=== PATIENT | male | born 1995 | race Caucasian/White ===

== ENCOUNTER 2017-04-07 17:25 | Emergency (ER) | payer SELFPAY ==
[~2017-04-07] VITALS: Ht 175.3 cm; Wt 73.0 kg
[2017-04-07 17:29] VITALS: Ht 175.3 cm; Wt 73.0 kg
[2017-04-07] MEDS ORDERED: ONDANSETRON (ODT) 4 MG TAB ODT STA (19:06)
[2017-04-07] MEDS ORDERED: RANI150T9 PO (19:16)
[2017-04-07] MEDS ORDERED: OMEP20CA16 PO (19:16)
[2017-04-07] MEDS ORDERED: LIDOCAINE/MYLANTA 40 ML BTL PO ONE (19:30)
[2017-04-07] MEDS ORDERED: PANTOPRAZOLE (EC) 40 MG TAB PO ONE (19:30)
--- NOTE | 2017-04-07 20:30 | ERD ---
ER Documentation Chief Complaint Date/Time DATE: 04/07/17 TIME: 20:27 Chief Complaint ABD PAIN WITH NAUSEA/VOMITING X 1 WEEK HPI This patient is a 22-year-old male with past medical history of gastric ulcers presenting to the emergency department for midepigastric pain ongoing intermittently for the past 10 days. Additionally he reports bloating after eating large meals. Symptoms are worse after eating. He reports pain 5 out of 10 on the pain scale which is intermittent. He is taken no medication for relief of symptoms. He states he feels acid in his esophagus after eating. He also reports nausea. He denies fevers, chills, chest pain, hematemesis, lower abdominal pain, urinary symptoms, dizziness, shortness of breath, or other symptoms. ROS All systems reviewed and are negative except as per history of present illness. Medications Home Meds Active Scripts Ranitidine Hcl* (Zantac*) 150 Mg Tablet, 150 MG PO BID Y for EPIGASTRIC PAIN, # 30 TAB Prov:JERRI BOSE PA-C 04/07/17 Omeprazole* (Omeprazole*) 20 Mg Capsule.dr, 20 MG PO DAILY, #14 Prov:JERRI BOSE PA-C 04/07/17 PMhx/Soc Medical and Surgical Hx: pt denies Medical Hx History of Surgery: Yes (hernia repair 2016) Anesthesia Reaction: No Hx Neurological Disorder: No Hx Respiratory Disorders: No Hx Cardiac Disorders: No Hx Psychiatric Problems: No Hx Miscellaneous Medical Probl: No Hx Alcohol Use: No Hx Substance Use: No Hx Tobacco Use: No Smoking Status: Never smoker Physical Exam Vitals Vital Signs Date Time Temp Pulse Resp B/P Pulse Ox O2 Delivery O2 Flow Rate FiO2 04/07/17 17:29 98.9 73 16 137/84 98 Physical Exam Const: Nontoxic, well-appearing male in no acute distress. Head: Atraumatic Eyes: Normal Conjunctiva ENT: Normal External Ears, Nose and Mouth. Neck: Full range of motion..~ No meningismus. Resp: Clear to auscultation bilaterally Cardio: Regular rate and rhythm, no murmurs Abd: Soft, mild subjective midepigastric tenderness to palpation but no rebound or guarding tenderness, non distended. Normal bowel sounds. Negative Kelley sign. No McBurney's point tenderness Skin: No petechiae or rashes Back: No midline or flank tenderness Ext: No cyanosis, or edema Neur: Awake and alert Psych: Normal Mood and Affect Results 24 hrs Current Medications Medications (Trade) Dose Ordered Sig/Timi Route PRN Reason Start Time Stop Time Status Last Admin Dose Admin Miscellaneous Medication (Gi Cocktail (2)) 40 ml ONCE ONCE PO 04/07/17 19:30 04/07/17 19:31 DC 04/07/17 19:14 Ondansetron HCl (Zofran Odt) 4 mg ONCE STAT ODT 04/07/17 19:06 04/07/17 19:07 DC 04/07/17 19:14 Pantoprazole (Protonix Tab) 40 mg ONCE ONCE PO 04/07/17 19:30 04/07/17 19:31 DC 04/07/17 19:14 Procedures/MDM 22-year-old male presenting to the emergency department with complaints of midepigastric pain and a feeling of acid in his esophagus. Physical examination is unremarkable. There is no McBurney's point tenderness. Negative Kelley sign. There is no rebound tenderness or guarding noted. The patient was given p.o. GI cocktail, p.o. Zofran, and p.o. tonics in the department he was feeling improved on reevaluation. I did not feel that further workup is indicated at this time because the patient's symptoms are likely secondary to GERD or minor gastric ulcers, considering his history of this. I have low suspicion for bowel obstruction, mesenteric ischemia, appendicitis, cholecystitis, kidney stones, septic stone, sepsis, or other emergent conditions. The patient is stable for outpatient management with a prescription for omeprazole and ranitidine and he is to have close follow-up with his primary care physician and possible follow-up with GI specialist if indicated. Strict ER return precautions were discussed. The patient is to return immediately for any new or worsening symptoms. Departure Diagnosis: Primary Impression: Epigastric pain Condition: Fair Patient Instructions: Gerd (Adult), Epigastric Pain (Uncertain Cause) [facility] Usted se jewell hecho un examen mdico de control que le indica que no est en marii condicin que requiera tratamiento urgente en el Departamento de Emergencia. Un estudio ms profundo y el tratamiento de waggoner condicin pueden esperar sin ningn riesgo hasta que usted sea atendida/o en el consultorio de waggoner mdico o marii cl anaid. Es responsabilidad suya arreglar marii jonnathan para el seguimiento del donte. MANEJO DE CONDICIONES NO URGENTES EN EL FUTURO 1) Si usted tiene un mdico de atencin primaria: Usted debera llamar a waggoner mdico de atencin primaria antes de venir al departamento de emergencia. Despus de las horas de consultorio, waggoner doctor o waggoner asociado/a est disponible por telfono. El mdico o enfermero de shawna en el servicio telefnico puede asesorarle por errol medio para atender el problema, o donte contrario se puede programar marii jonnathan. 2) Si usted no tiene un mdico de atencin primaria: Llame al mdico o clnica de referencia que aparece abajo bianca las horas de consultorio para hacer marii jonnathan para que le vean. CLINICAS: [facility] [phone] [facility] [phone] [facility] [facility] [phone] [facility]. [facility] [phone] [facility] [place] [phone] [facility]. [phone] [address] Additional Instructions: No mas mejor en 2-3 grady, regresar. Mas peor en 24 horas, regresear rapidamente. Ir a doctor primario in 5-7 grady. Usar instrucciones cuando edin medicamento. JERRI BOSE PA-C Apr 07, 2017 20:25
== END 2017-04-07 20:10 | disposition home or self-care (01) ==
LOC: FTE 17:25
DX: R10.13 Epigastric pain (principal); R11.2 Nausea with vomiting, unspecified
CPT/HCPCS: 99283